=== PATIENT | female | born 1955 | race Caucasian/White ===

== ENCOUNTER 2017-08-06 14:47 | Emergency (ER) | payer OTHER ==
[~2017-08-06] VITALS: Ht 170.2 cm; Wt 65.6 kg
[2017-08-06 15:04] VITALS: TEMP 36.9; Ht 170.2 cm; Wt 65.6 kg
--- NOTE | 2017-08-06 15:40 | EMERGENCY ROOM VISIT NOTE ---
History Report prepared by Darcy: Mitra Olivarez Under the Supervision of: Dr. Rob Flannery M.D. First contact with patient: 15:17 Chief Complaint: ALLERGIC REACTION Stated Complaint: STUNG ON LIPS Nursing Triage Summary: pt reports something bit her upper right lip she initially thought it was a bee but now she is unsure History of Present Illness The patient is a 62 year old white female with no past medical history who presents to the ED with a cc of a constant allergic reaction beginning 30 minutes ago. The patient states that she was stung by a bug on her right upper lip when she was drinking coffee today. She reports that she is not sure what stung her and it may have been a bee. Positive swelling, pain, redness. Denies tongue pain, tongue swelling, rash. Pt notes that she is allergic to Benadryl, Claritin, and clams. Source of History: patient Onset: 30 minutes ago Position: lip (upper) Quality: other (sting) Timing: constant Associated Symptoms: No rash Note: Positive swelling, redness, pain. Denies tongue pain, tongue swelling. Review of Systems See HPI for pertinent positives and negatives. A total of ten systems were reviewed and were otherwise negative. Past Medical & Surgical Medical Problems: (1) No Known Active Medical Problems Family History No pertinent family history staed. Social History Smoking Status: Never Smoker Smokeless Tobacco Use: No Alcohol Use: occasionally Marital Status: single Housing Status: lives with family Occupation Status: employed Current/Historical Medications Scheduled Famotidine (Pepcid), 40 MG PO QD Prednisone (Prednisone), 50 MG PO DAILY Allergies Coded Allergies: Diphenhydramine (Verified Allergy, Intermediate, hives, 08/06/17) Loratadine (Verified Allergy, Intermediate, throat swells, 08/06/17) Uncoded Allergies: CLAMS (Allergy, Intermediate, throat swells, 08/06/17) Physical Exam Vital Signs Date Time Temp Pulse Resp B/P (MAP) Pulse Ox O2 Delivery O2 Flow Rate FiO2 08/06/17 16:48 82 16 113/69 99 08/06/17 15:10 98 Room Air 08/06/17 15:04 36.9 87 18 116/79 97 Room Air Physical Exam GENERAL: Awake, alert, well-appearing, NAD HENT: Normocephalic, atraumatic. Posterior oropharynx is clear, slight swelling to upper lip. EYES: Normal conjunctiva. Sclera non-icteric. NECK: Supple. No nuchal rigidity. FROM. No stridor. RESPIRATORY: CTAB, no rhonchi, wheezing, crackles CARDIAC: RRR, no MRG ABDOMEN: Soft, NTND, BS+ MSK: No chest wall TTP, no LE edema NEURO: GCS 15, CN 2-12 intact, moves all 4s on command SKIN: No rash or jaundice noted. No rash, urticaria. Medical Decision & Procedures Medications Administered Medications (Trade) Dose Ordered Sig/Chani Route Start Time Stop Time Status Last Admin Dose Admin Prednisone (PredniSONE TAB) 50 mg ONE STAT PO 08/06/17 15:37 08/06/17 15:39 DC 08/06/17 15:37 50 MG Famotidine (Pepcid Tab) 40 mg NOW ONCE PO 08/06/17 15:45 08/06/17 15:46 DC 08/06/17 15:45 40 MG ED Course 1517: The patient was evaluated in room C8. A complete history and physical exam was performed.\ 1638: I reevaluated the patient. Discussed results and discharge instructions: She verbalized understanding and agreement. The patient is ready for discharge. Medical Decision The patient is a 62 year old white female with no past medical history who presents to the ED with a cc of a constant allergic reaction beginning 30 minutes ago. Differential diagnosis: Etiologies such as allergic reaction, anaphylaxis, urticaria, Mayorga-Sudarshan syndrome, toxic epidermal necrolysis, erythema multiforme, cellulitis, as well as others were entertained. Patient was seen and evaluated the bedside. Patient did sustain a likely hymenoptera sting to the right upper lip. Patient had no other signs of diffuse swelling or urticaria. Patient had no stridor and no wheezing. Patient was given medications. Patient was reevaluated patient had no further worsening of her symptoms. Her swelling had improved. Patient had no stridor no wheezing. Patient was given strict follow-up, discharge, and return precautions. Patient agreed with plan of care patient safely discharged home. Medication Reconcilliation Current Medication List: was personally reviewed by me Blood Pressure Screening Patient's blood pressure: Normal blood pressure Blood pressure disposition: Did not require urgent referral Impression Primary Impression: Allergic reaction Additional Impression: Sting from hornet, wasp, or bee Scribe Attestation The scribe's documentation has been prepared under my direction and personally reviewed by me in its entirety. I confirm that the note above accurately reflects all work, treatment, procedures, and medical decision making performed by me. Departure Information Dispostion Home / Self-Care Prescriptions Prednisone (PREDNISONE) 50 Mg Tab 50 MG PO DAILY for 4 Days, #4 TAB Prov: Rob Flannery M.D. 08/06/17 Famotidine (PEPCID) 40 Mg Tab 40 MG PO QD for 10 Days, #10 TAB Prov: Rob Flannery M.D. 08/06/17 Patient Instructions Bites Stings Insect, ED Allergic Reaction Local Other, My [facility] Additional Instructions Please return to the emergency department if you have worsening or recurrent symptoms not amenable to at-home treatment. Please call for a follow-up appointment with her primary care physician. Please take your medications as prescribed. If you have other concerns and/or complaints please feel free to also call your primary care physician's office or return the ED for further evaluation, management, and treatment. You may take 400 mg Ibuprofen every 12 hours as needed for pain with food for no more than 2 consecutive days. You may take tylenol 1000 mg every 8 hours as needed for pain. You may take motrin and tylenol separately or at the same time. Do not take steroids at the same time You have been examined and treated today on an emergency basis only. This is not a substitute for, or an effort to provide, complete comprehensive medical care. It is impossible to recognize and treat all injuries or illnesses in a single emergency department visit. It is therefore important that you follow up closely with [facility]. Call as soon as possible for an appointment. Thank you for your time and consideration. I look forward to speaking with you again soon. Please don't hesitate to call us if you have any questions. Problem Qualifiers Primary Impression: Allergic reaction Encounter type: initial encounter Qualified Codes: T78.40XA - Allergy, unspecified, initial encounter Additional Impression: Sting from hornet, wasp, or bee Encounter type: initial encounter Injury intent: accidental or unintentional Qualified Codes: T63.451A - Toxic effect of venom of hornets, accidental (unintentional), initial encounter; T63.441A - Toxic effect of venom of bees, accidental (unintentional), initial encounter; T63.461A - Toxic effect of venom of wasps, accidental (unintentional), initial encounter
[2017-08-06] MEDS ORDERED: FAMOTIDINE 20 MG TAB PO ONE (15:45)
[2017-08-06] MEDS ORDERED: PRED50TA PO (16:36)
[2017-08-06] MEDS ORDERED: FAMO40TA6 PO (16:36)
[2017-08-06 16:48] VITALS: BP 113/69; PULSE 82; O2SAT 99
== END 2017-08-06 16:49 | disposition home or self-care (01) ==
LOC: C.EDB 14:51 → C.EDC 16:49
DX: T63.441A Toxic effect of venom of bees, accidental (unintentional), initial encounter (principal); Z88.8 Allergy status to other drugs, medicaments and biological substances